=== PATIENT | male | born 1995 ===

== ENCOUNTER 2020-02-11 19:00 | Outpatient (CLI) | payer OTHER | END 2020-02-11 19:01 | disposition home or self-care (01) | LOC: SLEEPLAB 19:00 | PROVIDERS: ATTEND Family Medicine | DX: R06.83 Snoring (principal); R51.9 Headache, unspecified; R53.83 Other fatigue; G47.10 Hypersomnia, unspecified; G47.00 Insomnia, unspecified; Q38.1 Ankyloglossia; G47.30 Sleep apnea, unspecified | CPT/HCPCS: 95810 ==